=== PATIENT | male | born 2000 | race Caucasian/White ===

== ENCOUNTER 2024-06-16 09:59 | Emergency (ER) | payer MEDICAID ==
[~2024-06-16] VITALS: Ht 177.8 cm; Wt 64.0 kg
[2024-06-16 10:07] VITALS: O2SAT 100
[2024-06-16] MEDS: LIDOCAINE HCL/PF 1% 10 MG/ML 5ML VIAL INFIL ONE (11:43)
[2024-06-16] MEDS: BACITRACIN ZINC OINT UDPKT TOP ONE (11:43)
[2024-06-16] MEDS: KETOROLAC 15MG/ML VIAL IM ONE (11:43)
[2024-06-16 12:17] LABS: BASOPHILS % 0.4 % (0.0-2.0); DIFFERENTIAL COMMENT 0; EOSINOPHILS % 0.6 % (0.0-5.0); HEMATOCRIT. 37.8 % (42.0-52.0); HEMOGLOBIN. 11.6 g/dL (14.0-18.0); LYMPHOCYTES % 11.2 % (20.0-50.0); MEAN CORPUSCULAR HGB CONC 30.7 g/dL (31.0-37.0); MEAN CORPUSCULAR VOLUME 74.9 fL (80.0-94.0); MEAN PLATELET VOLUME 9.2 fl (7.4-10.4); MONOCYTES % 4.6 % (2.0-8.0); NEUTROPHILS % 83.2 % (40.0-76.0); PLATELET 208 x1000/uL (130-400); RED BLOOD CELL COUNT 5.05 mill/uL (4.7-6.1); RED CELL DISTRIBUTION WIDTH 19.5 % (11.6-14.6); WHITE BLOOD COUNT 11.1 x1000/uL (4.5-11.0)
[2024-06-16 12:22] LABS: CARBON DIOXIDE 28 mEq/L (21-32); CHLORIDE 106 mEq/L (98-107); SODIUM 141 mEq/L (136-145)
[2024-06-16 12:23] LABS: CALCIUM 9.4 mg/dL (8.7-10.4)
[2024-06-16 12:27] LABS: CREATININE 0.6 mg/dL (0.6-1.3); GLUCOSE 103 mg/dL (70-105)
[2024-06-16 12:28] LABS: UREA NITROGEN BLOOD 8 mg/dL (9-23)
[2024-06-16] MEDS: CEFAZOLIN 1000MG PREMIX 50 ML IV ONE (13:17)
[2024-06-16 13:32] VITALS: TEMP 37.00296
[2024-06-16] MEDS ORDERED: NAPR-1176 MT (15:09)
[2024-06-16] MEDS ORDERED: CEPH500C2 MT (15:09)
[2024-06-16 16:30] VITALS: BP 128/62; PULSE 74; RESP 14; O2SAT 100
== END 2024-06-16 16:39 | disposition home or self-care (01) ==
LOC: ER 09:59
DX: S62.601A Fracture of unspecified phalanx of left index finger, initial encounter for closed fracture (principal); W27.0XXA Contact with workbench tool, initial encounter; Y93.89 Activity, other specified; Y92.89 Other specified places as the place of occurrence of the external cause; Y99.8 Other external cause status
CPT/HCPCS: 80048; 85025; 36415; 73130; 96365; 96372; 99284; J0690; J1885; J3490; Z7610 ×2